=== PATIENT | female | born 1970 | race Caucasian/White ===

== ENCOUNTER → 2024-03-05 15:30 | Outpatient (REF) | payer OTHER, SELFPAY | LOC: WDC 15:30 | PROVIDERS: ATTENDING PHYSICIAN Family Medicine | DX: Z12.31 Encounter for screening mammogram for malignant neoplasm of breast (principal) | CPT/HCPCS: 77063; 77067 ==

== ENCOUNTER → 2024-04-07 07:29 | Outpatient (REF) | payer SELFPAY | LOC: RAD 07:29 | PROVIDERS: ATTENDING PHYSICIAN Family Medicine | DX: E78.00 Pure hypercholesterolemia, unspecified (principal); Z82.49 Family history of ischemic heart disease and other diseases of the circulatory system | CPT/HCPCS: 75571 ==

== ENCOUNTER → 2025-04-15 08:08 | Outpatient (REF) | payer OTHER, SELFPAY | LOC: WDC 08:08 | PROVIDERS: ATTENDING PHYSICIAN Family Medicine | DX: Z12.31 Encounter for screening mammogram for malignant neoplasm of breast (principal) | CPT/HCPCS: 77063; 77067 ==